=== PATIENT | male | born 1935 | race Two or more races ===

== ENCOUNTER 2024-10-15 15:38 | Emergency (ER) | payer MEDICAID, SELFPAY ==
--- NOTE | 2024-10-15 15:53 | EKG_ITS ---
[facility] Test Date: 2024-10-15 Pat Name: BRIAN NEGRETE Department: Room: - Gender: Male [place] [employer]: : 1935 Requested By: Johnson Zepeda (SHOE PATTERNMAKER) Order Number: [id number] Reading MD: Johnson Zepeda (SHOE PATTERNMAKER) Measurements Intervals [place] Rate: 59 P: 30 AK: 167 QRS: -43 QRSD: 105 T: 25 QT: 376 QTc: 374 Interpretive Statements SINUS BRADYCARDIA MARKED LEFT AXIS DEVIATION [QRS AXIS < -30] PATTERN CONSISTENT WITH PULMONARY DISEASE MODERATE VOLTAGE CRITERIA FOR LVH, CONSIDER NORMAL VARIANT [MEETS CRITERIA IN ONE OF: R(aVL), S(V1), R(V5), R(V5/V6)+S(V1)] MODERATE T-WAVE ABNORMALITY, CONSIDER ANTERIOR ISCHEMIA [-0.1+ mV T WAVE IN V3/V4] No previous ECG available for comparison /store/S0/[id number].pdf
[2024-10-15 16:02] VITALS: BP 123/76; PULSE 60; RESP 18; TEMP 37.1; O2SAT 98
--- NOTE | 2024-10-15 16:04 | XR_ITS ---
Examination: CT brain head without contrast. 2-D sagittal coronal reconstructions Date and time of exam:October 15, 2024 1642 hrs. Indications: Onset headaches dizziness today CTDI: vol (mGy):46.9 DLP: (mGycm):961 Technique: Multiple CT axial sections of the brain have been obtained, 5 mm slice thickness. Contrast has not been administered. 2-D sagittal, coronal reconstructions have been obtained Low dose protocols were performed. One or more of the following dose reduction techniques were used; automated exposure control, adjustment of the mA and/or KV according to patient size, use of iterative reconstruction technique. Findings: No significant ventricular enlargement. Intra-axial or extra-axial hemorrhage density is not seen. No mass effect or midline shift Basal cisterns are not remarkable. Fourth ventricle is midline. Cranial vault intact. Old fracture medial wall right orbit Impression: Negative for acute hemorrhage, mass effect or midline shift Coronal image 28 suspicious for right otitis media and right otitis externa, consider CT scanning middle inner ear without contrast follow-up
--- NOTE | 2024-10-15 16:05 | XR_ITS ---
Examination: PA lateral chest 2 views Technique: Upright PA lateral chest 2 views Exam date and time: October 15, 2024 1632 hrs. Indications: Chest pain weakness today. Findings: Mild opacity at the lung bases consistent with pneumonia No significant cardiac enlargement Ectatic thoracic aorta Severe osteopenia Impression: Mild bibasilar pneumonia
--- NOTE | 2024-10-15 16:06 | PD.EDRME ---
Rapid Medical Screening Exam RME Arrival date/time: 10/15/24 15:38 89-year-old male presents emerged part with complaints of generalized fatigue and dizziness Chief Complaint: Dizziness Time Seen by Provider: 10/15/24 16:03 Vital signs: Vital Signs Temperature 98.8 F 10/15/24 16:02 Pulse Rate 60 10/15/24 16:02 Respiratory Rate 18 10/15/24 16:02 Blood Pressure 123/76 10/15/24 16:02 Pulse Oximetry (%) 98 10/15/24 16:02 Oxygen Delivery Method Room Air 10/15/24 16:02
[2024-10-15 16:45] LABS: Basophils % (Auto) 1 % (0-2.5); Eosinophils # (Auto) 0.2 Thou/mm3 (0.0-0.5); Eosinophils % (Auto) 3 % (0-10); Hematocrit 37.1 % (41.0-53.0); Immature Granulocytes % (Auto) 0 % (0-0); Immature Granulocytes Auto 0.01 Thou/mm3 (0.00-0.00); Lymphocytes # (Auto) 2.6 Thou/mm3 (1.0-4.8); Lymphocytes % (Auto) 43 % (10-50); Mean Corpuscular Hemoglobin 30.9 pg (25.0-35.0); Mean Corpuscular Volume 88 fL (80-100); Monocytes # (Auto) 0.6 Thou/mm3 (0.0-0.8); Monocytes % (Auto) 10 % (0-12); Neutrophils # (Auto) 2.7 Thou/mm3 (1.8-7.7); Neutrophils % (Auto) 44 % (37-80); Nucleated Red Blood Cell % 0 /100 WBC (0); Platelet Count 192 Thou/mm3 (140-440); RDW Standard Deviation 37.7 fL (35.1-43.9); Red Blood Count 4.21 Miln/mm3 (4.50-5.90); White Blood Count 6.1 Thou/mm3 (3.8-10.6)
[2024-10-15 17:02] LABS: Collection Type, Urine Clean Catch
[2024-10-15 17:03] LABS: INR 1.1 (0.9-1.3); Partial Thromboplastin Time 26.5 Seconds (22.0-36.0); Prothrombin Time 11.6 Seconds (9.0-12.2)
[2024-10-15 17:04] LABS: B-Type Natriuretic Peptide < 20 pg/mL (0-100)
[2024-10-15 17:07] LABS: Alanine Aminotransferase 23 U/L (10-49); Albumin, Serum 4.6 gm/dL (3.4-4.8); Albumin/Globulin Ratio 1.4 (1.2-2.2); Alkaline Phosphatase 77 U/L (46-116); Anion Gap 7 (7-16); Aspartate Amino Transferase 25 U/L (0-34); BUN/Creatinine Ratio 13 Ratio (12-20); Bilirubin,Total 0.6 mg/dL (0.3-1.2); Blood Urea Nitrogen 16 mg/dL (9-23); Calcium 9.7 mg/dL (8.3-10.6); Calcium (Corrected) 9.7 mg/dL (8.5-10.1); Carbon Dioxide 29.5 mMol/L (20.0-31.0); Chloride 102 mMol/L (98-107); Creatinine (Component) 1.2 mg/dL (0.6-1.3); Globulin 3.2 gm/dL (2.3-3.5); Glucose 85 mg/dL (74-106); Magnesium 2.1 mg/dL (1.6-2.6); Osmolality,Calculated 275 (275-295); Potassium 4.2 mMol/L (3.4-5.1); Sodium 138 mMol/L (136-145); Total Protein 7.8 gm/dL (5.7-8.2); Troponin I 0.023 ng/mL (0.0-0.045); eGFR 58 See Note
[2024-10-15 17:17] LABS: Bilirubin,Urine Negative (Negative); Blood,Urine Negative (Negative); Clarity,Urine Clear (Clear/Hazy); Color,Urine Yellow (Lt Yel-Yel); Glucose, Urine Negative (Negative); Ketones,Urine Negative (Negative); Leukocyte Esterase,Urine Negative (Negative); Nitrite,Urine Negative (Negative); Protein,Urine 1+ (Neg - Trace); RBC,Urine 2 /hpf (0-3); Specific Gravity,Urine 1.026 (1.001-1.035); Squamous Epithelial Cell,Urine < 1 /hpf (0-5); Urobilinogen,Urine Negative mg/dL (0.0-1.0); WBC,Urine 1 /hpf (0-5)
[2024-10-15 21:15] VITALS: BP 143/59; PULSE 50; RESP 16; TEMP 36.6; O2SAT 96
--- NOTE | 2024-10-15 21:41 | EDNOTE_ITS ---
ED General RME/HPI General Chief complaint: Dizziness Stated complaint: DIZZINESS AND LETHARGY Time Seen by Provider: 10/15/24 16:03 Arrival date/time: 10/15/24 15:38 CC: Dizziness urgency and dribbling with a history of prostate enlargement HPI dizziness ongoing for the past 24 hours urinary symptoms ongoing for 2 weeks. Patient denies headache blurred vision seeing spots falls. No prior history of dizziness. RME / HPI RME / HPI narrative: 10/15/24 15:38 89-year-old male presents emerged part with complaints of generalized fatigue and dizziness Related Data Home Medications ?Medication ?Instructions ?Recorded ?Confirmed donepezil 5 mg tablet 5 mg PO QDAY 10/15/24 10/15/24 gabapentin 100 mg tablet 100 mg PO QDAY 10/15/24 10/15/24 tamsulosin 0.4 mg capsule 0.4 mg PO QDAY 10/15/24 10/15/24 Previous Rx's ?Medication ?Instructions ?Recorded meclizine 25 mg tablet 25 mg PO QDAY PRN dizziness #14 10/15/24 tabs sulfamethoxazole 800 1 tab PO BID 7 days #14 tabs 10/15/24 mg-trimethoprim 160 mg tablet (Bactrim DS) Allergies Allergy/AdvReac Type Severity Reaction Status Date / Time NKA* Allergy Uncoded 10/15/24 15:40 Review of Systems Review of Systems Narrative Review of Systems: GEN: No fever, no chills, no weight loss EYES: No discharge, no visual changes, no pain HEENT: No ear pain, no congestion, no sore throat PULM: No shortness of breath, no cough, no congestion CV: No chest pain, no dyspnea on exertion, no palpitations GI: No nausea, no vomiting, no diarrhea, no pain, no constipation : No frequency, no urgency, no dysuria MUSC/SKEL: No joint pain, no back pain SKIN: No rash PSYCH: No hallucinations, no depression HEME/LYMPH: No easy bleeding or bruising tendencies NEURO: No weakness, no headache, +dizziness Past Medical History Past Medical History CARDIAC: Negative Congestive Heart Failure RESPIRATORY: Negative Chronic Obstructive Pulmonary Disease (COPD) GENITOURINARY: Negative Renal Disease ENDOCRINE: Negative Diabetes Mellitus Type 1 or Diabetes Mellitus Type 2 Social History SMOKING STATUS: Never smoker ED Exam Narrative Physical exam: [General: Not in any acute distress Head normocephalic HEENT: Eyes pupils are PERRLA EOMs are intact mild nystagmus mouth: [place] moist membranes uvula is midline swallow symmetrical. All other subsystems of HEENT are within acceptable limits Neck is supple nontender Chest equal chest rise nontender to palpation Respiratory: Clear to auscultation no wheezes crackles or rubs CV: Rate rhythm is regular no murmurs rubs or clicks Abdomen is soft nontender no masses positive bowel sounds all 4 quadrants Back: No CVA tenderness no spinous process tenderness from cervical spine thoracic and lumbar spine Skin: Intact no petechiae rash induration ulceration or crepitus Extremities: Moving all extremity against resistance cap refill less than 2 seconds neurosensory intact Neuro: Awake alert oriented x3 Glascow coma 15 no focal deficits] Course Quality Measures none Orders Category Date Time Status EKG (ED ONLY) *Do not use* NOW Care 10/15/24 15:[address] head/brain wo con Stat Exams 10/15/24 16:04 Completed EKG (ED Only) Stat Exams 10/15/24 15:53 Draft XR chest 2V Stat Exams 10/15/24 16:05 Completed B-Type Natriuretic Peptide Stat Lab 10/15/24 16:20 Completed CBC Stat Lab 10/15/24 16:20 Completed Comprehensive Metabolic Panel Stat Lab 10/15/24 16:20 Completed Magnesium Stat Lab 10/15/24 16:20 Completed Partial Thromboplastin Time Stat Lab 10/15/24 16:20 Completed Prothrombin Time with INR Stat Lab 10/15/24 16:20 Completed Troponin I Stat Lab 10/15/24 16:20 Completed Urinalysis Stat Lab 10/15/24 16:54 Completed Meclizine HCl [Antivert] Med 10/15/24 21:40 Discontinued 25 mg PO X1 ONE Vital Signs Vital signs: Vital Signs Temperature 98.8 F 10/15/24 16:02 Pulse Rate 60 10/15/24 16:02 Respiratory Rate 18 10/15/24 16:02 Blood Pressure 123/76 10/15/24 16:02 Pulse Oximetry (%) 98 10/15/24 16:02 Oxygen Delivery Method Room Air 10/15/24 16:02 [facility] Patient data External records reviewed:: [facility] previous records Clinical information provided by:: patient Social determinants that could affect healthcare access:: none Patient has the following chronic illnesses:: Enlarged prostate How is presenting disease/condition affected by chronic disease/condition?: u neffected by Evaluation data The following diagnostics were reviewed and interpreted by me:: lab results and radiology exam(s) Lab and/or radiology exams considered but not ordered:: CBC shows no leukocytosis or anemia no thrombocytopenia Coags within acceptable limits CMP shows no acute electrolyte imbalances renal impairment transaminitis or T. bili elevation Urine is negative for urinary tract infection CT of the head shows possible right otitis media otitis externa Chest x-ray shows mild basilar pneumonia Interpretation Summary: Suspected otitis media otitis externa. Patient will be started on Bactrim and meclizine. Patient be also given Flomax for his urinary symptoms as the urine is negative for UTI. Medications Medications considered but not ordered:: None Medication administrations:: Medication Administration History Discontinued Medications Meclizine HCl (Meclizine Hcl 25 Mg Tablet) 25 mg PO X1 ONE Stop: 10/15/24 21:41 Last Admin: 10/15/24 21:51 Dose: 25 mg Documented By: TC None Consultations Consultation(s) initiated? (list below): No Diagnosis Differential Diagnosis ED Complaint MDM: Vertigo otitis media otitis externa urinary retention Most likely diagnosis given after review of the tests above:: Vertigo otitis media otitis externa Admission Indicated Admission indicated?: not indicated Explain why admission is indicated or not indicated:: Stable for outpatient follow-up Admission Request Was there a request for admission?: No Disposition Plan Disposition Plan: Discharge Discharge Attestation Discharge Attestation: The patient and all family members were given an opportunity to ask questions and understood the discharge instructions. Discharge instructions specifically effects, indications for sooner follow up or return to the emergency department, and the expected course of current diagnosis. Patient condition: Stable Medical Decision Making Differential Diagnosis Differential Diagnosis: Vertigo otitis media otitis externa urinary retention Lab Data 10/15/24 16:20 10/15/24 16:20 Labs: Lab Results 10/15/24 10/15/24 Range/Units 16:20 16:54 WBC 6.1 (3.8-10.6) Thou/mm3 RBC 4.21 L (4.50-5.90) Miln/mm3 Hgb 13.0 L (13.5-16.0) g/dL Hct 37.1 L (41.0-53.0) % MCV 88 (80-100) fL MCH 30.9 (25.0-35.0) pg MCHC 35.0 (31.0-37.0) g/dl RDW Std Deviation 37.7 (35.1-43.9) fL Plt Count 192 (140-440) Thou/mm3 Neut % (Auto) 44 (37-80) % Lymph % (Auto) 43 (10-50) % Larue % (Auto) 10 (0-12) % Eos % (Auto) 3 (0-10) % Baso % (Auto) 1 (0-2.5) % Neut # (Auto) 2.7 (1.8-7.7) Thou/mm3 Lymph # (Auto) 2.6 (1.0-4.8) Thou/mm3 Larue # (Auto) 0.6 (0.0-0.8) Thou/mm3 Eos # (Auto) 0.2 (0.0-0.5) Thou/mm3 Baso # (Auto) 0.0 (0.0-0.2) Thou/mm3 Immature Gran # (Auto) 0.01 H (0.00-0.00) Thou/mm3 Absolute Nucleated RBC 0.00 (0.00-0.00) Thou/mm3 Immature Gran % 0 (0-0) % Nucleated RBC % 0 (0) /100 WBC PT 11.6 (9.0-12.2) Seconds INR 1.1 (0.9-1.3) APTT 26.5 (22.0-36.0) Seconds Sodium 138 (136-145) mMol/L Potassium 4.2 (3.4-5.1) mMol/L Chloride 102 (98-107) mMol/L Carbon Dioxide 29.5 (20.0-31.0) mMol/L Anion Gap 7 (7-16) BUN 16 (9-23) mg/dL Creatinine 1.2 (0.6-1.3) mg/dL Estim Creat Clear Calc Not Performed. eGFR 58 L (60 - ) See Note BUN/Creatinine Ratio 13 (12-20) Ratio Glucose 85 (74-106) mg/dL Calculated Osmolality 275 (275-295) Calcium 9.7 (8.3-10.6) mg/dL Corrected Calcium 9.7 (8.5-10.1) mg/dL Magnesium 2.1 (1.6-2.6) mg/dL Total Bilirubin 0.6 (0.3-1.2) mg/dL AST 25 (0-34) U/L ALT 23 (10-49) U/L Alkaline Phosphatase 77 (46-116) U/L Troponin I 0.023 (0.0-0.045) ng/mL B-Natriuretic Peptide < 20 (0-100) pg/mL Total Protein 7.8 (5.7-8.2) gm/dL Albumin 4.6 (3.4-4.8) gm/dL Globulin 3.2 (2.3-3.5) gm/dL Albumin/Globulin Ratio 1.4 (1.2-2.2) Ur Collection Type Clean Catch Urine Color Yellow (Lt Yel-Yel) Urine Clarity Clear (Clear/Hazy) Urine pH 6.0 (5.0-7.0) Ur Specific [place] 1.026 (1.001-1.035) Urine Protein 1+ A (Neg - Trace) Urine Glucose (UA) Negative (Negative) Urine Ketones Negative (Negative) Urine Blood Negative (Negative) Urine Nitrite Negative (Negative) Urine Bilirubin Negative (Negative) Urine Urobilinogen (Auto) Negative (0.0-1.0) mg/dL Ur Leukocyte Esterase Negative (Negative) Urine RBC 2 (0-3) /hpf Urine WBC 1 (0-5) /hpf Ur Squamous Epith Cells < 1 (0-5) /hpf Urine Bacteria None (None) Discharge Plan Plan Patient Disposition: HOME (Self Care) Patient condition on transfer: Stable Prescriptions/Referrals Prescriptions/Med Rec: New meclizine 25 mg tablet 25 mg PO QDAY PRN (Reason: dizziness) Qty: 14 0RF sulfamethoxazole-trimethoprim [Bactrim DS] 800-160 mg tablet 1 tab PO BID 7 Days Qty: 14 0RF No Action donepezil 5 mg Tablet 5 mg PO QDAY tamsulosin 0.4 mg Capsule 0.4 mg PO QDAY gabapentin 100 mg Tablet 100 mg PO QDAY Referrals: Betzaida Lane, MOTION PICTURE OPERATOR [Primary Care Provider] - In 1 week Problem List Clinical Impression: Vertigo, Otitis media Patient/Caregiver Discharge Instructions Education Materials: ED Dizziness, Uncertain Cause, ED Acute Otitis Media with ... Print Language: Uzbek Stand Alone Forms: Yael Award Info., Patient Portal Info Letter PA/WINDOWS CONSULTANT Supervising Physician PA/WINDOWS CONSULTANT Supervising Physician: Joo Lucio ENP
[2024-10-15] MEDS: MECLIZINE HCL 25 MG TABLET PO (21:51)
[2024-10-15 22:23] VITALS: BP 143/67; PULSE 51; RESP 16; O2SAT 100
== END 2024-10-15 22:24 | disposition home or self-care (01) ==
PROVIDERS: Nurse Practitioner Primary Care; Emergency Provider Emergency Medicine; PCP Nurse Practitioner Family
DX: R42 Dizziness and giddiness (principal); H66.91 Otitis media, unspecified, right ear
CPT/HCPCS: 36415; 70450; 71046; 80053; 81001; 83735; 83880; 84484; 85025; 85610; 85730; 93005; 99284; A9270

== ENCOUNTER 2024-11-03 17:16 | Emergency (ER) | payer MEDICAID, SELFPAY ==
[2024-11-03 18:03] VITALS: BP 133/69; PULSE 64; RESP 18; TEMP 37.1; O2SAT 96
--- NOTE | 2024-11-03 18:36 | XR_ITS ---
Examination: CT brain head without contrast. 2-D sagittal coronal reconstructions Date and time of exam:September 1842 hrs. Indications: Patient fell today with into the head, head pain CTDI: vol (mGy):48.7 DLP: (mGycm):966 Technique: Multiple CT axial sections of the brain have been obtained, 5 mm slice thickness. Contrast has not been administered. 2-D sagittal, coronal reconstructions have been obtained Low dose protocols were performed. One or more of the following dose reduction techniques were used; automated exposure control, adjustment of the mA and/or KV according to patient size, use of iterative reconstruction technique. Findings: No significant ventricular enlargement. Intra-axial or extra-axial hemorrhage density is not seen. No mass effect or midline shift Basal cisterns are not remarkable. Fourth ventricle is midline. Cranial vault intact. Impression: Negative for acute hemorrhage, mass effect or midline shift
--- NOTE | 2024-11-03 18:36 | XR_ITS ---
Examination: CT cervical spine without contrast 2-D sagittal reconstructions 2-D coronal reconstructions 3-D reconstructions. Exam date and time:November 03, 2024 1856 hrs. Indications: Patient fell today with into the neck, neck pain CTDI:vol (mGy) 72 DLP: (mGycm) 179 Technique: Multiple 2 mm axial sections of the cervical spine have been obtained. The coronal and sagittal reconstructions have been obtained. 3-D reconstructions have been obtained. Low dose protocols were performed. One or more of the following dose reduction techniques were used; automated exposure control, adjustment of the mA and/or KV according to patient size, use of iterative reconstruction technique. Findings: Axial sections demonstrate intact base of the skull. C1 exhibit satisfactory relationship to the odontoid. No acute cervical vertebral body fracture seen. Alignment posterior spinous processes satisfactory. Impression: No acute cervical fracture.
--- NOTE | 2024-11-03 18:36 | PD.EDRME ---
Rapid Medical Screening Exam [facility] Arrival date/time: 11/03/24 17:16 89M with history of BPH and dementia presents to ED with daughter for trip and fall today where he hit his head. Chief Complaint: Fall Vital signs: Vital Signs Temperature 98.7 F 11/03/24 18:03 Pulse Rate 64 11/03/24 18:03 Respiratory Rate 18 11/03/24 18:03 Blood Pressure 133/69 H 11/03/24 18:03 Pulse Oximetry (%) 96 11/03/24 18:03 Oxygen Delivery Method Room Air 11/03/24 18:03
--- NOTE | 2024-11-03 21:33 | PD.EDFALL ---
ED Fall Injury RME/HPI General Chief Complaint: Fall Stated Complaint: FALL THIS AM, HEAD INJURY Time Seen by Provider: 11/03/24 20:00 Arrival date/time: 11/03/24 17:16 RME / HPI RME / HPI Narrative: 89M with history of BPH and dementia presents to ED with daughter for trip and fall today where he hit his head. Onset of symptoms earlier this morning. Patient denies any LOC. Denies any back pain. Denies any other complaints patient is ambulatory. Related Data Home Medications ?Medication ?Instructions ?Recorded ?Confirmed donepezil 5 mg tablet 5 mg PO QDAY 10/15/24 10/15/24 gabapentin 100 mg tablet 100 mg PO QDAY 10/15/24 10/15/24 tamsulosin 0.4 mg capsule 0.4 mg PO QDAY 10/15/24 10/15/24 Previous Rx's ?Medication ?Instructions ?Recorded meclizine 25 mg tablet 25 mg PO QDAY PRN dizziness #14 10/15/24 tabs Allergies Allergy/AdvReac Type Severity Reaction Status Date / Time No Known Allergies Allergy Verified 11/03/24 17:18 Review of Systems Review of Systems Narrative Review of Systems: Review of system reviewed and within normal limits except mentioned in HPI ED Exam Narrative Physical exam: VITAL SIGNS: Reviewed. GENERAL APPEARANCE: Alert and interactive, follows commands, no acute distress, HEAD AND FACE: Posterior scalp contusion ENT: PERRL, pink conjunctivitis, eyelid no trauma, Mucous membrane moist. NECK: Supple, nontender, no nuchal rigidity. CHEST: No tenderness, no crepitus, no paradoxical movement, no retractions. LUNGS: Clear, well ventilated, symmetric, no rales, no wheezing, no ronchi, no stridor, good breath sounds bilaterally. HEART: Regular rate, regular rhythm, no murmur, no gallops. ABDOMEN: Soft, positive bowel sounds, nondistended, no guarding, nontender, no rebound, no masses, RECTAL: Deferred. GENITAL: Deferred. NEUROLOGICAL: Gross motor function intact sensory function intact, Appropriate for age. MUSCULOSKELETAL: low back nontender, full range of motion. EXTREMITIES: Nontender, full range of motion. SKIN: Color pink, dry, no rash, no lacerations, no abrasions, no contusions. LYMPHATICS: Deferred. Course Quality Measures none Orders Category Date Time Status CT cervical spine wo con Stat Exams 11/03/24 18:[address] head/brain wo con Stat Exams 11/03/24 18:36 Completed Vital Signs Vital signs: Vital Signs Temperature 98.7 F 11/03/24 18:03 Pulse Rate 64 11/03/24 18:03 Respiratory Rate 18 11/03/24 18:03 Blood Pressure 133/69 H 11/03/24 18:03 Pulse Oximetry (%) 96 11/03/24 18:03 Oxygen Delivery Method Room Air 11/03/24 18:03 Fall MDM Narrative MDM Narrative:: 89M with history of BPH and dementia presents to ED with daughter for trip and fall today where he hit his head. Onset of symptoms earlier this morning. Patient denies any LOC. Denies any back pain. Denies any other complaints patient is ambulatory. CT scan of the head came back unremarkable CT scan of the neck came back unremarkable. Patient appears nontoxic and hemodynamically stable. Patient discharged home and instructed to follow-up with primary care provider in 24 to 48 hours. Instructed to return to the emergency department immediately if worsening of symptoms Patient data External records reviewed:: None Clinical information provided by:: patient Social determinants that could affect healthcare access:: none Patient has the following chronic illnesses:: Dementia, BPH How is presenting disease/condition affected by chronic disease/condition?: uneffected by Evaluation data The following diagnostics were reviewed and interpreted by me:: radiology exam(s) Lab and/or radiology exams considered but not ordered:: None Interpretation Summary: CT scan of the head came back unremarkable. CT scan of the neck came back unremarkable. Medications / Prescriptions Medications or Prescriptions considered but not ordered:: None Medication administrations:: None Consultations Consultation(s) initiated? (list below): No Diagnosis Fall Differential Diagnosis: other (Scalp contusion, status post fall, intracranial bleed) Most likely diagnosis given after review of the tests above:: Scalp contusion, status post fall Admission Indicated Admission indicated?: not indicated Admission Request Was there a request for admission?: No Disposition Plan Disposition Plan: Discharge Discharge Attestation Discharge Attestation: The patient and all family members were given an opportunity to ask questions and understood the discharge instructions. Discharge instructions specifically effects, indications for sooner follow up or return to the emergency department, and the expected course of current diagnosis. Patient condition: Stable Discharge Plan Plan Patient Disposition: HOME (Self Care) Disposition Comment: Stable Prescriptions/Referrals Prescriptions/Med Rec: No Action donepezil 5 mg Tablet 5 mg PO QDAY tamsulosin 0.4 mg Capsule 0.4 mg PO QDAY gabapentin 100 mg Tablet 100 mg PO QDAY meclizine 25 mg tablet 25 mg PO QDAY PRN (Reason: dizziness) Qty: 14 0RF Referrals: Gopi Loving MD [Primary Care Provider] - In 1 week Problem List Clinical Impression: Contusion of scalp, Fall Patient/Caregiver Discharge Instructions Discharge Activity: activity as tolerated Education Materials: ED Scalp Contusion Additional Instructions: Thank you for the opportunity for serving you today. You are stable for discharged . You are advised to: Follow-up with your PCP in 1 to 2 days Return to ED for worsening of symptoms Increase oral fluids Take [id number] Tylenol Motrin as needed for pain Print Language: Tongan Stand Alone Forms: Yael Award Info., Patient Portal Info Letter PA/MORRIS Supervising Physician VERONICA/MORRIS Supervising Physician: MD Mauro
[2024-11-03 21:42] VITALS: RESP 18
== END 2024-11-03 21:43 | disposition home or self-care (01) ==
PROVIDERS: Emergency Provider Emergency Medicine; PCP Student in an Organized Health Care Education/Training Program
DX: S00.03XA Contusion of scalp, initial encounter (principal); F03.90 Unspecified dementia, unspecified severity, without behavioral disturbance, psychotic disturbance, mood disturbance, and anxiety; W01.0XXA Fall on same level from slipping, tripping and stumbling without subsequent striking against object, initial encounter
CPT/HCPCS: 70450; 72125; 99284